=== PATIENT | male | born 1950 | race Caucasian/White ===

== ENCOUNTER 2016-02-21 14:42 | Outpatient (RCR) | payer MEDICARE, BC ==
[~2016-02-21 14:42] MED LIST: COUMADIN; COUMADIN 5MG5 MG/TAB PO; COUMADIN 6MG6 MG/TAB PO; ENALAPRIL; ENALAPRIL10 MG PO; FLAX SEED OIL1000 MG PO; HCTZ 25MG25 MG PO; LORTAB 7.5/5001 TAB PO; MULTIPLE VITAMI1 CAP PO; PANTOPRAZOLE40 MG PO; PERCOCET 5/321 UDTAB PO; PROTONIX TR40 MG PO; TYLENOL PM EXTR1 CAP PO; ULORIC80 MG PO; URIC ACID
[2016-03-23] MEDS ORDERED: COUMADIN 5MG5 MG/TAB PO (08:00)
[2016-03-23] MEDS ORDERED: HYDRODIURIL50 MG PO (08:02)
[2016-03-23] MEDS ORDERED: ZESTRIL 10MG10 MG PO (08:03)
[2016-03-23] MEDS ORDERED: NORVASC 5MG5 MG/TAB PO (08:03)
[2016-03-23] MEDS ORDERED: FLOMAX 0.40.4 MG/CAP PO (08:05)
[2016-03-23] MEDS ORDERED: LYRICA300 MG PO (08:05)
[2016-03-23] MEDS ORDERED: AMOXICILLIN 50500 MG PO (08:06)
[2016-03-23] MEDS ORDERED: TYLENOL 325MG325 MG PO (08:06)
[2016-03-23] MEDS ORDERED: CEPHALEXIN500 M1 PO (13:00)
== END 2016-04-21 10:09 | disposition still patient (30) ==
LOC: MKS.ESL.PT 14:42
DX: G62.89 Other specified polyneuropathies (principal)

== ENCOUNTER 2016-04-25 10:12 | Outpatient (RCR) | payer MEDICARE, BC ==
[~2016-04-25 10:12] MED LIST changes: +AMOXICILLIN 50500 MG PO; +CEPHALEXIN500 M1 PO; +FLOMAX 0.40.4 MG/CAP PO; +HYDRODIURIL50 MG PO; +LYRICA300 MG PO; +NORVASC 5MG5 MG/TAB PO; +TYLENOL 325MG325 MG PO; +ZESTRIL 10MG10 MG PO
== END 2016-06-06 14:35 | disposition home or self-care (01) ==
LOC: MKS.ESL.PT 10:12
DX: G62.89 Other specified polyneuropathies (principal)
CPT/HCPCS: G8978-GP; G8979-GP; G8980-GP

== ENCOUNTER 2016-05-16 09:30 | Outpatient (RCR) | payer MEDICARE, BC | END 2016-05-21 | disposition home or self-care (01) | LOC: MKS.ESL.PT | DX: G62.89 Other specified polyneuropathies (principal) ==

== ENCOUNTER → 2017-09-11 | Outpatient (REF) | LOC: ZLAB.WCH 17:56 | DX: Z01.89 Encounter for other specified special examinations (principal) ==

== ENCOUNTER 2017-10-02 17:12 | Observation (INO) | payer MEDICARE, BC ==
[2017-10-01 21:30] VITALS: BP 188/72; PULSE 49; TEMP 97
[~2017-10-02] VITALS: Ht 182.9 cm; Wt 103.6 kg
[2017-10-02] MEDS ORDERED: ZEBETA10 MG PO (17:34)
[2017-10-02] MEDS ORDERED: PROTONIX 40MG T40 MG PO (17:34)
[2017-10-02] MEDS ORDERED: ZESTRIL40 MG PO (17:34)
[2017-10-02] MEDS ORDERED: HCTZ 25MG TAB25 MG PO (17:35)
[2017-10-02] MEDS ORDERED: COUMADIN 6MG6 MG/TAB PO (17:35)
[2017-10-02] MEDS ORDERED: ULORIC80 MG PO (17:35)
[2017-10-02] MEDS ORDERED: FLAX OIL1000 MG (17:36)
[2017-10-02] MEDS ORDERED: LYRICA300 MG (17:36)
[2017-10-02] MEDS ORDERED: MULTI VITAMINS1 TAB PO (17:36)
[2017-10-02 18:07] LABS: BASO % 0.3 % (0.0-2.0); GRAN # 10.2 (1.4-6.5); HEMATOCRIT 42.3 % (42.0-52.0); HEMOGLOBIN 15.1 g/dl (13.5-18.0); LYMPH # 0.5 (1.2-3.4); LYMPH % 4.3 % (20.0-51.0); MEAN CELL VOLUME 86 fl (80.0-100.0); MEAN CORPUSCULAR HEMOGLOBIN 31 pg (27.0-31.0); MEAN CORPUSCULAR HGB CONC 36 g/dl (33.0-37.0); MEAN PLATELET VOLUME 10.5 fl (7.4-10.4); MONO # 0.5 (0.1-0.6); MONO % 4.8 % (1.7-9.3); PLATELET COUNT 165 K/mm3 (130-400); RED BLOOD COUNT 4.94 M/mm3 (4.20-5.60); REDCELL DISTRIBUTION WIDTH-CV 14.9 % (11.5-14.5)
[2017-10-02 18:11] LABS: INR 2.5 (0.8-3.0); PROTHROMBIN TIME 28.4 SECONDS (9.7-12.8)
[2017-10-02 18:21] LABS: CALCIUM 9.9 mg/dL (8.4-10.2); CREATININE, serum 0.98 mg/dL (0.66-1.25); TOTAL PROTEIN 7.5 gm/dL (6.4-8.2)
[2017-10-02 21:45] VITALS: BP 205/84; PULSE 50
[2017-10-02 22:00] VITALS: BP 188/74; PULSE 50
[2017-10-02 22:15] VITALS: BP 181/71; PULSE 52
[2017-10-02 22:45] VITALS: BP 177/69; PULSE 50
[2017-10-02 23:15] VITALS: BP 157/64; PULSE 49
[2017-10-03] VITALS (8 sets, daily range): BP systolic 133–181; BP diastolic 60–73; PULSE 49–79; TEMP 97–98.4
[2017-10-03 07:47] LABS: BASO % 0.2 % (0.0-2.0); EOS % 0.3 % (0-4.0); GRAN # 8.5 (1.4-6.5); GRAN % 86.2 % (42.2-75.2); HEMATOCRIT 43.7 % (42.0-52.0); HEMOGLOBIN 15.3 g/dl (13.5-18.0); LYMPH # 0.5 (1.2-3.4); LYMPH % 5.3 % (20.0-51.0); MEAN CELL VOLUME 86 fl (80.0-100.0); MEAN CORPUSCULAR HEMOGLOBIN 30 pg (27.0-31.0); MEAN CORPUSCULAR HGB CONC 35 g/dl (33.0-37.0); MEAN PLATELET VOLUME 11.3 fl (7.4-10.4); MONO # 0.7 (0.1-0.6); MONO % 7.3 % (1.7-9.3); PLATELET COUNT 157 K/mm3 (130-400); RED BLOOD COUNT 5.06 M/mm3 (4.20-5.60); REDCELL DISTRIBUTION WIDTH-CV 15.6 % (11.5-14.5)
[2017-10-03 07:55] LABS: INR 2.1 (0.8-3.0); PROTHROMBIN TIME 24.2 SECONDS (9.7-12.8)
[2017-10-03 07:59] LABS: ALBUMIN 3.8 gm/dL (3.5-5.0); CALCIUM 9.3 mg/dL (8.4-10.2); CREATININE, serum 0.89 mg/dL (0.66-1.25); PHOSPHOROUS 3.7 mg/dL (2.5-4.5); POTASSIUM 3.9 mmol/L (3.4-5.0)
[2017-10-03] MEDS ORDERED: FLAGYL500 MG PO (11:56)
[2017-10-03] MEDS ORDERED: PERCOCET 325 MG1 TA2 PO (11:56)
[2017-10-03] MEDS ORDERED: CIPRO 500MG TA500 MG PO (11:56)
== END 2017-10-03 16:05 | disposition home or self-care (01) ==
LOC: COL.ER 17:12 → SDCO 19:23 → SURG 21:21 → SDCO 21:22 → SURG 21:23
PROVIDERS: Emergency Medicine; Surgery
DX: T18.5XXA Foreign body in anus and rectum, initial encounter (principal); I10 Essential (primary) hypertension; E78.5 Hyperlipidemia, unspecified; Z90.5 Acquired absence of kidney; Z95.2 Presence of prosthetic heart valve; Z88.6 Allergy status to analgesic agent; Z95.810 Presence of automatic (implantable) cardiac defibrillator; Z87.891 Personal history of nicotine dependence
CPT/HCPCS: OP; A4314; G0378; J0360; J0690; J1170; J2250; J2405; J2704; J3010; J7030

== ENCOUNTER → 2018-04-23 | Outpatient (REF) ==
[~2018-04-23] MED LIST changes: +CIPRO 500MG TA500 MG PO; +FLAGYL500 MG PO; +FLAX OIL1000 MG; +HCTZ 25MG TAB25 MG PO; +LYRICA300 MG; +MULTI VITAMINS1 TAB PO; +PERCOCET 325 MG1 TA2 PO; +PROTONIX 40MG T40 MG PO; +ZEBETA10 MG PO; +ZESTRIL40 MG PO
== END ==
LOC: ZLAB.WCH 17:14
DX: Z01.89 Encounter for other specified special examinations (principal)

== ENCOUNTER 2019-08-31 12:20 | Inpatient (IN) | payer MEDICARE, BC ==
[~2019-08-31] VITALS: Ht 185.4 cm; Wt 104.6 kg
[~2019-08-31 12:20] MED LIST changes: -FLAX OIL1000 MG; +NATURAL FLAX1000 MG PO
[2019-08-31 12:43] LABS: BASO % 0.4 % (0.0-2.0); EOS # 0.1 (0.0-0.7); EOS % 1.1 % (0-4.0); GRAN % 80.6 % (42.2-75.2); HEMATOCRIT 47.9 % (42.0-52.0); HEMOGLOBIN 16.1 g/dl (13.5-18.0); LYMPH % 10.3 % (20.0-51.0); MEAN CELL VOLUME 88 fl (80.0-100.0); MEAN CORPUSCULAR HEMOGLOBIN 29 pg (27.0-31.0); MEAN CORPUSCULAR HGB CONC 34 g/dl (33.0-37.0); MEAN PLATELET VOLUME 11.3 fl (7.4-10.4); MONO # 0.6 (0.1-0.6); MONO % 6.4 % (1.7-9.3); PLATELET COUNT 157 K/mm3 (130-400); RED BLOOD COUNT 5.47 M/mm3 (4.20-5.60); REDCELL DISTRIBUTION WIDTH-CV 14.4 % (11.5-14.5)
[2019-08-31 12:52] LABS: ALBUMIN 4.7 gm/dL (3.5-5.0); BILIRUBIN,TOTAL 0.9 mg/dL (0.0-1.0); CALCIUM 10.1 mg/dL (8.4-10.2); CREATININE, serum 1.74 (0.66-1.25); POTASSIUM 4.9 mmol/L (3.4-5.0); TOTAL PROTEIN 8.4 gm/dL (6.4-8.2)
[2019-08-31 13:03] LABS: INR 2.4 (0.8-3.0); PROTHROMBIN TIME 27.3 SECONDS (9.7-12.8)
[2019-08-31 13:06] LABS: PARTIAL THROMBOPLASTIN TIME 48.8 SECONDS (26.0-37.0)
[2019-08-31] MEDS ORDERED: NORVASC 10MG10 MG PO (14:36)
[2019-08-31] MEDS ORDERED: AVAPRO300 M1 PO (14:36)
[2019-08-31] MEDS ORDERED: ALDACTONE50 MG PO (14:36)
--- NOTE | 2019-08-31 15:00 | NUR ---
Received patient from ED. Alert. States pain in right ribs and right shoulder is better. Right upper chest tube to 20 cm continous suction draining small amounts bloody drainage. Denies shortness of breath. O2 on per oxymask.
[2019-08-31 16:17] VITALS: BP 147/59; PULSE 50; TEMP 97.2
[2019-08-31 16:39] LABS: HEMATOCRIT 47.4 % (42.0-52.0)
--- NOTE | 2019-08-31 18:30 | NUR ---
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 O2 sats in mid 90's. O2 on per nasal cannula.
[2019-08-31 19:50] VITALS: BP 135/63; PULSE 50; TEMP 97.8
[2019-08-31 20:00] VITALS: BP 135/63; PULSE 50
--- NOTE | 2019-08-31 20:00 | NUR ---
Report received. 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 Assessment complete. A&Ox3. Chest tube-right chest-to 20cm suction. Small amount of reddish fluid. IV to left AC with [id number]-dilaudid BOAT HAND for pain. Rating pain 1/10 to right shoulder/ribs-states dilaudid is controlling pain well. O2@4L/NC. Denies questions/concerns. Call light in reach. Will monitor.
[2019-08-31 23:12] VITALS: BP 149/62; PULSE 51
[2019-08-31 23:13] VITALS: BP 149/62; PULSE 51; TEMP 97.4
[2019-09-01] VITALS (10 sets, daily range): BP systolic 148–155; BP diastolic 57–78; PULSE 50–88; TEMP 97.4–98.8
--- NOTE | 2019-09-01 04:00 | NUR ---
Rested off and on this shift. Dilaudid CSR contolling pain. States he cant sleep here and has been very restless due to the noise of the CSR/IV pump. 10mls out total to chest dxzk-fnzktcfekfopnhj-jmaucmn at low continuous suction at 20cm. No c/o shortness of breath/nausea. Call light in reach. Will monitor.
[2019-09-01 06:17] LABS: INR 2.6 (0.8-3.0); PROTHROMBIN TIME 28.8 SECONDS (9.7-12.8)
[2019-09-01 06:19] LABS: BASO % 0.2 % (0.0-2.0); EOS # 0.1 (0.0-0.7); EOS % 1.2 % (0-4.0); GRAN # 8.3 (1.4-6.5); GRAN % 82.1 % (42.2-75.2); HEMATOCRIT 41.7 % (42.0-52.0); HEMOGLOBIN 14.1 g/dl (13.5-18.0); LYMPH # 0.8 (1.2-3.4); LYMPH % 7.4 % (20.0-51.0); MEAN CELL VOLUME 88 fl (80.0-100.0); MEAN CORPUSCULAR HEMOGLOBIN 30 pg (27.0-31.0); MEAN CORPUSCULAR HGB CONC 34 g/dl (33.0-37.0); MEAN PLATELET VOLUME 11.6 fl (7.4-10.4); MONO # 0.9 (0.1-0.6); MONO % 8.6 % (1.7-9.3); PLATELET COUNT 147 K/mm3 (130-400); RED BLOOD COUNT 4.75 M/mm3 (4.20-5.60); REDCELL DISTRIBUTION WIDTH-CV 14.6 % (11.5-14.5)
[2019-09-01 06:25] LABS: BILIRUBIN,TOTAL 0.9 mg/dL (0.0-1.0); CREATININE, serum 1.13 (0.66-1.25); POTASSIUM 4.6 mmol/L (3.4-5.0); TOTAL PROTEIN 7.3 gm/dL (6.4-8.2)
--- NOTE | 2019-09-01 09:00 | NUR ---
Patient alert and oriented, answers questions appropriately. See assessment. Chest tube to right upper chest with dressing CDI. Chest tube patent to LCS. 45ml serosanguinous fluid noted in chest tube. Clamps, sterile water, gauze and vaseline gauze at bedside. RUL decreased, all other lung hinojosa CTA. MEDICAL RECEPTION dilaudid infusing into LAC IV, MEDICAL RECEPTION reviewed with patient. IS reviewed with patient. Patient states he is unable to move BUE, ROM exercises reviewed with patient, no restrictions for BUE. Neuros intact to BUE, no numbness or tingling, pulses palpable. OOB encouraged. No other c/o at this time.
--- NOTE | 2019-09-01 14:00 | NUR ---
SW met with the patient to discuss discharge plan. The patient lives outside of [place] with his , Gabi ([phone]). He reports independence with ADLs and has a cane, walker, and wheelchair available to him, if needed. The patient's PCP is Dr. Patrick Davis and he receives his medications at [facility]. He reports no difficulties obtaining his meds. The patient's advanced directives are in EMR. His DPOA-HC is his . The patient plans to return home with his upon discharge. He is currently requiring four liters of oxygen. SW to continue to monitor.
--- NOTE | 2019-09-01 15:39 | NUR ---
Dr Smith here to see patient.
--- NOTE | 2019-09-01 20:00 | NUR ---
Report received. 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 Assessment complete. VS stable. A&Ox3. Good pain control with dilaudid RISK CONSULTANT. Right chest tube dressing CDI-chest tube to continuous suction of 20cm. Output pink tinged. IV to left AC infusing D5W@30ml/hr without difficulty. O2 at 4L/NC. Plan of care discussed for this shift to include chest tube to water seal/chest x ray in AM. Verbalizes understanding. Denies nausea/tolerating PO. SCDs bilat. Encouraged to call with questions/concerns. Call light in reach. Will monitor.
[2019-09-02] VITALS (8 sets, daily range): BP systolic 125–142; BP diastolic 46–70; PULSE 50–55; TEMP 97.9–98.8
--- NOTE | 2019-09-02 02:35 | NUR ---
This nurse heard moaning at nurses station. When got to room was trying to stand up stating "I fell asleep for several hours and I am in so much pain I have to stand up." Stood at bedside for approx 5 minutes. Crying out in pain. 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 Assisted back to bed. Bolus of 0.2mg given per dr order for pain rated 10/10 to right chest/shoulder/back. Resting more comfortably now. Denies needs. Call lightin reach. Will monitor.
--- NOTE | 2019-09-02 04:30 | NUR ---
Chest tube suction DCd at this time. Chest tube to H2O seal.
[2019-09-02 07:09] LABS: HEMATOCRIT 42.1 % (42.0-52.0); HEMOGLOBIN 14.3 g/dl (13.5-18.0); MEAN CELL VOLUME 88 fl (80.0-100.0); MEAN CORPUSCULAR HEMOGLOBIN 30 pg (27.0-31.0); MEAN CORPUSCULAR HGB CONC 34 g/dl (33.0-37.0); MEAN PLATELET VOLUME 11.9 fl (7.4-10.4); PLATELET COUNT 126 K/mm3 (130-400); RED BLOOD COUNT 4.78 M/mm3 (4.20-5.60); REDCELL DISTRIBUTION WIDTH-CV 14.6 % (11.5-14.5)
[2019-09-02 07:22] LABS: CALCIUM 9.1 mg/dL (8.4-10.2); CREATININE, serum 1.12 (0.66-1.25); POTASSIUM 4.5 mmol/L (3.4-5.0)
[2019-09-02 07:50] LABS: INR 1.9 (0.8-3.0); PROTHROMBIN TIME 21.4 SECONDS (9.7-12.8)
--- NOTE | 2019-09-02 11:00 | NUR ---
Dr Smith came to see patient. He discontinued the chest tube. Will be stopping the MASK DESIGN ENGINEER and startign on PO pain medications. Patient started having pain to his right shoulder in the night when he tried to get up to the bathroom. X-ray of right shoulder ordered because patient can not use his right arm or place weight on the right hand. Patient is sitting up in the chair. He stated he is looking forward to getting the MASK DESIGN ENGINEER discontinued. Patient is also getting stool softners and laxatives. Tylenol and roxicodone given for pain at this time. No other changes at this time. Call light within reach.
--- NOTE | 2019-09-02 18:00 | NUR ---
Patient got up this afternoon to use the bathroom. He was straining to hard to have a bowel movement and started bleeding from his hemorrhoids. Dr Smith notified. TUKs pads ordered. Patient stated the bleeding has since resolved. He has had problems in the past with this. Pain stated the pain to his shoulder is better this afternoon and he has been able to use it more. His pain has been well controlled with pain pills. No other changes at this time. Call light within reach.
--- NOTE | 2019-09-02 20:00 | NUR ---
Report received. 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 Up in room doing oral care. Assessment complete. VS stable. A&Ox3. Denies shortness of breath/nausea. Rating pain to right side/shoulder 3/10 on pain scale-described as constant ache. Denies need for intervention. Dressing to right chest with small dime size old drainage-gauze dressing. INT to right and left AC flush without difficulty. Tolerating PO. SCDs bilat. Denies questions/concerns. Call light in reach. Will monitor.
--- NOTE | 2019-09-02 22:00 | NUR ---
Up to bathroom to void. Called for assistance sitting up. States he cant use right shoulder very well and has a hard time going from bed to standing. Minimal assistance given-able to return to bed with no assistance. Did ambulate around room but stated he couldnt take the pain. Rating pain 8/10 on pain scale to right chest/shoulder described as constant ache/throbbing. Denies shorntess of breath. Roxicodone given per dr vaughan. Will monitor
[2019-09-03 00:37] VITALS: BP 132/51; PULSE 50; TEMP 99
--- NOTE | 2019-09-03 04:11 | NUR ---
Up to bathroom to void, assist x1 out of bed-no assist back. Did curriculum coordinator room and amblate in room. Performed oral care/hygiene. C/O pain to right chest/shoulder described as constant ache/throbbing-rating 8/10-evelyn given per dr vaughan. Will monitor.
[2019-09-03 05:04] VITALS: BP 151/64; PULSE 56; TEMP 97.8
[2019-09-03 06:57] LABS: HEMATOCRIT 38.7 % (42.0-52.0); HEMOGLOBIN 13.4 g/dl (13.5-18.0)
[2019-09-03 07:05] LABS: INR 1.6 (0.8-3.0); PROTHROMBIN TIME 17.5 SECONDS (9.7-12.8)
--- NOTE | 2019-09-03 08:00 | NUR ---
Patient in bed resting. Alert and oriented x 3. Assessment complete. Denies pain at this time. Chest tube site with gauze is CDI. Denies further needs a this time.
[2019-09-03 08:13] VITALS: BP 148/57; PULSE 54; TEMP 98.7
--- NOTE | 2019-09-03 11:35 | NUR ---
Patient called out to nurses station c/o rib pain 08/23. Medications given per orders.
[2019-09-03 11:39] VITALS: BP 145/58; PULSE 51; TEMP 97.4
[2019-09-03 16:43] VITALS: BP 144/57; PULSE 51; TEMP 98.3
[2019-09-03] MEDS ORDERED: TYLENOL 500MG500 MG PO (17:19)
[2019-09-03] MEDS ORDERED: ROXICODONE 55 MG/TAB PO (17:21)
--- NOTE | 2019-09-03 19:05 | NUR ---
Discharge education provided to patient. Educated on all new medications and medication safety. Educated on signs and symptoms of infection and scheduling follow up appointment. All questions answered. INT to left and right AC discontinued, catheter tips intact. Pain medications given prior to discharge for "rib pain" 10/23. No further needs at this time. Patient out by wheelchair with surgical staff.
== END 2019-09-03 16:45 | disposition home or self-care (01) | DRG 200 ==
LOC: COL.ER 12:20 → SURG 13:31
PROVIDERS: Emergency Medicine; ADMIT Surgery
PROC: 0W9930Z Drainage of Right Pleural Cavity with Drainage Device, Percutaneous Approach (ICD-10-PCS; principal; 2019-08-31)
DX: S27.0XXA Traumatic pneumothorax, initial encounter (principal); S22.31XA Fracture of one rib, right side, initial encounter for closed fracture; W11.XXXA Fall on and from ladder, initial encounter; Y93.89 Activity, other specified; Y92.9 Unspecified place or not applicable; I10 Essential (primary) hypertension; G62.9 Polyneuropathy, unspecified; E78.5 Hyperlipidemia, unspecified; Z95.810 Presence of automatic (implantable) cardiac defibrillator; Z79.01 Long term (current) use of anticoagulants; Z95.2 Presence of prosthetic heart valve; Z90.5 Acquired absence of kidney; Z87.891 Personal history of nicotine dependence
CPT/HCPCS: A9284; J1170; J2250; J3010; J7030; J7070; Q9967

== ENCOUNTER 2021-07-08 07:11 | Day surgery (SDC) | payer MEDICARE, BC ==
[~2021-07-08] VITALS: Ht 182.9 cm; Wt 105.9 kg
[~2021-07-08 07:11] MED LIST changes: +ALDACTONE50 MG PO; +AVAPRO300 M1 PO; +FLAXSEED OIL1000 MG PO; -NATURAL FLAX1000 MG PO; +NORVASC 10MG10 MG PO; +ROXICODONE 55 MG/TAB PO; +TYLENOL 500MG500 MG PO
[2021-07-08 07:45] VITALS: BP 135/68; PULSE 57; TEMP 97.2
[2021-07-08] MEDS ORDERED: AVAPRO300 M1 PO (07:50)
[2021-07-08] MEDS ORDERED: COUMADIN 5MG5 MG/TAB PO (07:52)
[2021-07-08] MEDS ORDERED: CRESTOR5 MG PO (07:54)
[2021-07-08 09:00] VITALS: BP 135/68; PULSE 53; TEMP 97.1
--- NOTE | 2021-07-08 09:13 | NUR ---
PT ARRIVED TO BAY 7, VSS. PT DROWSY BUT EASILY ARROUSES. PT TOLERATING ICE WATER. SPOUSE AT BEDSIDE
[2021-07-08 09:15] VITALS: BP 113/60; PULSE 51
[2021-07-08 09:30] VITALS: BP 119/69; PULSE 50
[2021-07-08 09:45] VITALS: BP 125/67; PULSE 50
--- NOTE | 2021-07-08 09:55 | NUR ---
PT MET DISCHARGE CRITERIA, VSS. IV REMOVED WITHOUT COMPLICATIONS, CATHETER INTACT. DISCHARGE INSTRUCTIONS REVIEWED, PT VERBALIZED UNDERSTANDING. PT DC TO HOME VIA WHEELCHAIR TO FRONT ENTRANCE.
== END 2021-07-08 10:12 | disposition home or self-care (01) ==
LOC: SDCO 07:11
DX: K92.1 Melena (principal); K64.1 Second degree hemorrhoids; Z86.010 Personal history of colon polyps; I48.20 Chronic atrial fibrillation, unspecified; Z79.01 Long term (current) use of anticoagulants; C64.1 Malignant neoplasm of right kidney, except renal pelvis; G47.33 Obstructive sleep apnea (adult) (pediatric); Z95.4 Presence of other heart-valve replacement; Z95.0 Presence of cardiac pacemaker; Z87.891 Personal history of nicotine dependence
CPT/HCPCS: J2704; J7120